=== PATIENT | male | born 1990 | race Caucasian/White ===

== ENCOUNTER → 2020-12-11 | Outpatient (CLI) | payer OTHER ==
[~2020-12-11] MED LIST: CELEXA40 MG PO; CLARITIN10 MG PO; COLACE100 MG PO; IBUPROFEN800 MG PO; LO-DOSE ASPIRIN81 MG PO; MIRALAX 119 GR119 GM PO; OMEPRAZOLE20 M1 PO; PREDNISONE20 MG PO; STOOL SOFTENER100 MG PO; SUBOXONE 8 MG-1 EACH SL; VITAMIN D250 MCG PO
== END ==
LOC: EXRD 12-04 10:15
DX: R10.11 Right upper quadrant pain (principal); K80.20 Calculus of gallbladder without cholecystitis without obstruction
CPT/HCPCS: 76700

== ENCOUNTER → 2021-01-31 | Day surgery (SDC) | payer OTHER | END | disposition home or self-care (01) | LOC: OR 09:45 | PROVIDERS: Surgery | PROC: 0FT44ZZ Resection of Gallbladder, Percutaneous Endoscopic Approach (ICD-10-PCS; principal; 2021-01-31 14:30) | DX: K80.10 Calculus of gallbladder with chronic cholecystitis without obstruction (principal); I10 Essential (primary) hypertension; J44.9 Chronic obstructive pulmonary disease, unspecified; K21.9 Gastro-esophageal reflux disease without esophagitis; F17.210 Nicotine dependence, cigarettes, uncomplicated; Z79.82 Long term (current) use of aspirin; Z79.899 Other long term (current) drug therapy; Z20.822 Contact with and (suspected) exposure to COVID-19; Z91.018 Allergy to other foods | CPT/HCPCS: J0690; J1100; J2250; J2405; J2704; J2710; J2795; J3010; J7030; J7120 ==